=== PATIENT | male | born 1965 | race Caucasian/White ===

== ENCOUNTER 2018-07-09 20:00 | Emergency (ER) | payer OTHER ==
[~2018-07-09] VITALS: Ht 172.7 cm; Wt 68.0 kg
[2018-07-09 20:07] VITALS: BP 150/83; Ht 172.7 cm; Wt 68.0 kg
== END 2018-07-09 21:26 | disposition left against medical advice (07) ==
LOC: ED 20:00
DX: F19.10 Other psychoactive substance abuse, uncomplicated (principal); F15.10 Other stimulant abuse, uncomplicated; F12.10 Cannabis abuse, uncomplicated